=== PATIENT | male | born 1985 | race Caucasian/White ===

== ENCOUNTER → 2017-01-01 | Outpatient (CLI) | payer OTHER | END | disposition home or self-care (01) | LOC: CARD 09:14 | PROVIDERS: ATTEND Psychiatry & Neurology Neurology | DX: G40.209 Localization-related (focal) (partial) symptomatic epilepsy and epileptic syndromes with complex partial seizures, not intractable, without status epilepticus (principal) | CPT/HCPCS: 95819 ==

== ENCOUNTER → 2018-08-20 | Outpatient (CLI) | payer OTHER | END | disposition home or self-care (01) | LOC: RAD 14:33 | PROVIDERS: ATTEND Physician Assistant | DX: N50.3 Cyst of epididymis (principal) | CPT/HCPCS: 76870 ==